=== PATIENT | female | born 1955 | race Caucasian/White ===

== ENCOUNTER 2020-09-18 06:44 | Outpatient (NON) | payer MEDICARE, OTHER, SELFPAY ==
[2020-09-19 02:43] LABS: SARS-CoV-2 RNA PCR Negative
== END 2020-09-18 06:45 ==
LOC: ANHCOVIDDT 06:45
PROVIDERS: PCP Internal Medicine; Visit Provider Internal Medicine
DX: Z20.828 Contact with and (suspected) exposure to other viral communicable diseases (principal)
CPT/HCPCS: 87635; C9803; U0003

== ENCOUNTER 2020-10-28 10:27 | Outpatient (CLI) | payer MEDICARE, SELFPAY ==
--- NOTE | ~2020-10-28 | US_ITS ---
EXAMINATION: US carotid duplex BI DATE: 10/28/2020 11:23 INDICATION: Carotid stenosis TECHNIQUE: Grayscale, color Doppler, and pulsed Doppler images of the cervical carotid arteries were obtained. The degree of vessel stenosis is placed in one of the following categories: normal, <50%, 5 0-69%, >=70% but less than near-occlusion, near-occlusion, or total occlusion. Note that percent sten osis relative to normal distal artery lumen diameter is indirectly measured from velocity measurement s as described by Stanley, et al. Radiology 2003; 229:340-346. Notes: Normal: Peak systolic velocity <125 centimeters/sec and no plaque <50%. Peak systolic velocity <125 ( EDV <40; ICA/CCA PSV ratio <2.0; used these factors only a tandem lesions or low cardiac output or co ntralateral disease) 50-69 %: PSV 125-230 (EDV 40-100; ratio 2-4) >= 70% but less than near occlusion: PSV greater than 230 (EDV > 100; ratio> 4.0) Near Occlusion: PSV that is variable; markedly narrowed lumen Occlusion: Absent flow on color/spectral Doppler and no lumen on fernandez scale. COMPARISON: Ultrasound dated 08/07/2019 FINDINGS: RIGHT: The right common carotid artery (CCA) peak systolic velocity (PSV) is 77 cm/s. The right internal car otid artery (ICA) PSV is 79 cm/s. The right ICA end-diastolic velocity (EDV) is 24 cm/s. The right IC A/CCA PSV ratio is 1.0. The external carotid artery (ECA) PSV is 63 cm/s. There is antegrade flow in the right vertebral artery. LEFT: The left CCA PSV is 88 cm/s. The left ICA PSV is 92 cm/s. The left ICA EDV is 11 cm/s. The left ICA/C CA PSV ratio is 1.0. The ECA PSV is 90 cm/s. There is antegrade flow in the left vertebral artery. IMPRESSION: 1. Less than 50% stenosis in the right internal carotid artery by sonographic criteria. 2. Less than 50% stenosis in the left internal carotid artery by sonographic criteria. Reviewed, dictated and finalized at location A. MAN OR SUPERVISOR AND OPERATOR IMPRESSION: 1. Less than 50% stenosis in the right internal carotid artery by sonographic c kasia. 2. Less than 50% stenosis in the left internal carotid artery by sonographic aleta aguirre.
== END 2020-10-28 10:28 | disposition home or self-care (01) ==
LOC: ANHIMG 10:42
PROVIDERS: PCP Internal Medicine; Visit Provider Internal Medicine
DX: R09.89 Other specified symptoms and signs involving the circulatory and respiratory systems (principal); I65.23 Occlusion and stenosis of bilateral carotid arteries
CPT/HCPCS: 93880

== ENCOUNTER 2021-05-24 10:01 | Outpatient (CLI) | payer MEDICARE, SELFPAY ==
--- NOTE | ~2021-05-24 | XR_ITS ---
EXAMINATION: XR TMJ BI DATE: 05/24/2021 10:28 INDICATION: Popping at the right temporomandibular joint. TECHNIQUE: Open and closed mouth views of the left and right temporomandibular joints were obtained. COMPARISON: None. FINDINGS: No fracture. There is normal alignment at the bilateral temporomandibular joints with the mandibular heads normally located at the mandibular fossae in the closed mouth position with normal anterior tra nsitory motion with the mandibular heads positioned caudal to the articular eminences in the open-sharon th position. The temporomandibular joint spaces appear normal with no osteoarthritic changes apprecia lemuel. Severe upper cervical facet osteoarthritis. IMPRESSION: 1. Normal bilateral temporomandibular joints. Reviewed, dictated and finalized at location A.
== END 2021-05-24 10:02 | disposition home or self-care (01) ==
LOC: ANHIMG 10:05
PROVIDERS: PCP Internal Medicine; Visit Provider Internal Medicine
DX: M26.621 Arthralgia of right temporomandibular joint (principal)
CPT/HCPCS: 70330

== ENCOUNTER 2021-07-11 08:41 | Outpatient (CLI) | payer MEDICARE, SELFPAY ==
--- NOTE | ~2021-07-11 | XR_ITS ---
EXAMINATION: XR cervical spine min 6V EXAM DATE: 07/11/2021 09:14 INDICATION: M54.2 - Cervicalgia,PAIN X 2 WKS NKI, limited mobility. TECHNIQUE: Cervical spine frontal, lateral, lateral swimmers, and open-mouth odontoid projections. Additional lateral flexion and lateral extension projections obtained. Correlation was made with CT c ervical spine 2018. FINDINGS: There are no acute fractures identified. There is moderate loss of the C5-6 and C6-7 disc height. There is 2 mm retrolisthesis C5 on C6 on all the lateral projections. The odontoid process i s intact. The lateral masses of C1 line up with C2. Prevertebral soft tissue and pre-dens space are within normal limits. There is moderate to severe cervical facet arthropathy. Prevertebral soft tissu e and pre-dens space are within normal limits. Lung apices are clear. IMPRESSION: Moderate to severe cervical arthropathy, moderate lower cervical disc disease. Reviewed, dictated and finalized at location B. IMPRESSION: Moderate to severe cervical arthropathy, moderate lower cervical di sc disease.
== END 2021-07-11 08:42 | disposition home or self-care (01) ==
PROVIDERS: PCP Internal Medicine; Visit Provider Internal Medicine
DX: M50.30 Other cervical disc degeneration, unspecified cervical region (principal)
CPT/HCPCS: 72052

== ENCOUNTER 2021-12-12 06:54 | Outpatient (CLI) | payer MEDICARE, SELFPAY ==
--- NOTE | ~2021-12-12 | CT_ITS ---
EXAMINATION: CT LE RT w con DATE: 12/12/2021 07:45 INDICATION: Right calf mass. TECHNIQUE: Computed tomography (CT) of the right lower leg was performed with 100 mL Omnipaque 350 in travenous contrast. Automated exposure control and iterative reconstruction technique were employed. The dose-length product was 148.01 mGy-cm. COMPARISON: None FINDINGS: Bone alignment is normal. No fracture. There is a benign bone island in distal tibia. There is mild right knee osteoarthritis. There is no significant stenosis of the calf arteries with three- vessel runoff. IMPRESSION: 1. No abnormal calf mass. Reviewed, dictated and finalized at location A. ALT DISTRIBUTOR TENDER IMPRESSION: 1. No abnormal calf mass.
== END 2021-12-12 06:55 | disposition home or self-care (01) ==
LOC: ANHIMG 06:59
PROVIDERS: PCP Internal Medicine; Visit Provider Internal Medicine
DX: R22.9 Localized swelling, mass and lump, unspecified (principal)
CPT/HCPCS: 73701; Q9967

== ENCOUNTER 2022-12-21 07:40 | Outpatient (CLI) | payer MEDICARE, SELFPAY ==
--- NOTE | ~2022-12-21 | MR_ITS ---
MRI of the right hip Clinical history: Pain, status post fall Technique: Coronal T1-weighted, T2-weighted, and proton-density fat-sat images, and axial T1-weighted and proton-density fat-sat images were acquired through the pelvis. Coronal T2-weighted images and c oronal, axial, and sagittal proton-density fat-sat images were acquired through the left hip. Findings: There is no fracture, avascular necrosis, or transient suppresses of either hip. Bone marro w signals in the proximal femora and visualized pelvic bones are unremarkable. Bilateral hip and SI j oint spaces are preserved. No significant degenerative change seen. No joint effusion. No right acetabular labral tear identified. Visualized musculature about the pelvis and right hip is unremarkable. No muscle atrophy or edema jaquelin ntified. Visualized tendons are intact. No evidence for bursitis. No soft tissue mass or fluid collec tion seen. IMPRESSION: Unremarkable exam. Reviewed, dictated and finalized at location . CARE LIAISON IMPRESSION: Unremarkable exam.
--- NOTE | ~2022-12-21 | MR_ITS ---
MRI of the lumbar spine Clinical History: Pain, status post fall Technique: Axial T2-weighted images, and sagittal T1-weighted, T2-weighted, and T2 fat-sat images wer e acquired. Findings: There is no fracture or subluxation of the lumbar spine. Vertebral bodies maintain normal h eight and alignment. No bone marrow signal abnormality identified. At L1-L2, there is no disc bulge or herniation. No spinal canal stenosis or neural foraminal narrowin g. At L2-L3, there is no disc bulge or herniation. No spinal canal stenosis or neural foraminal narrowin g. L3-L4, there is no disc bulge or herniation. There is minimal facet joint hypertrophy. No spinal atilio l stenosis or neural foraminal narrowing. At L4-L5, there is right foraminal disc protrusion with minimal facet joint hypertrophy. There is no spinal canal stenosis. There is mild right neural foraminal narrowing, with probable focal impingemen t of the exiting nerve root. At L5-S1, there is no disc bulge or herniation. There is minimal facet joint arthropathy. No spinal c anal stenosis or neural foraminal narrowing. Paravertebral soft tissues are unremarkable. Impression: No fracture or subluxation. Right foraminal disc protrusion at L4-L5, which probably impinges the exiting right-sided nerve root at this level. Reviewed, dictated and finalized at [facility]. RDOUS MATERIALS TANKER DRIVER Impression: No fracture or subluxation. Right foraminal disc protrusion at L4-L5, which probably impinges the exiting r ight-sided nerve root at this level.
== END 2022-12-21 07:41 | disposition home or self-care (01) ==
PROVIDERS: PCP Internal Medicine; Visit Provider Internal Medicine
DX: M25.551 Pain in right hip (principal); M54.10 Radiculopathy, site unspecified; W19.XXXA Unspecified fall, initial encounter; M79.604 Pain in right leg; M51.26 Other intervertebral disc displacement, lumbar region
CPT/HCPCS: 72148; 73721

== ENCOUNTER → 2023-01-30 09:26 | Outpatient (CLI) | payer MEDICARE, SELFPAY ==
--- NOTE | ~2023-01-30 | US_ITS ---
Procedure: Duplex Doppler examination of the bilateral carotids. Indication: Carotid bruit Technique: Real time, color-flow and pulse wave Doppler examination of the bilateral carotids was performed. Findings: Costa scale ultrasonography of the right neck demonstrated no significant plaque. There was demonstrat ion of normal color-flow and Doppler waveforms within the right common, internal and external carotid arteries. The peak systolic velocities in the right common, internal and external carotid arteries w ere demonstrated to be 67 cm/sec, 87 cm/sec and 96 cm/sec respectively. The right ICA/CCA ratio was 1 .5.The proximal right internal carotid artery demonstrates 0% stenosis relative to the normal distal artery lumen diameter. Costa scale sonography of the left neck demonstrated no significant plaque. There was demonstration of normal color-flow and wave forms within the left common, internal and external carotid arteries. The peak systolic velocities in the left common, internal and external carotid arteries were demonstrate d to be 87cm/sec, 95 cm/sec and 110 cm/sec respectively. The left ICA/CCA ratio was 1.8. The proximal left internal carotid artery demonstrates 0% stenosis relative to the normal distal artery lumen donte meter. There was antegrade flow demonstrated in the bilateral vertebral arteries. Impression: No hemodynamically significant stenosis of the bilateral internal carotid arteries. Antegrade flow in the bilateral vertebral arteries. Note: The methodology used is an indirect measurement validated against a direct method (such as the NASCET criteria) that compares diameters at the stenosis to the distal ICA. Reviewed, dictated and finalized at [facility]. Impression: No hemodynamically significant stenosis of the bilateral internal carotid arter ies. Antegrade flow in the bilateral vertebral arteries. Note: The methodology used is an indirect measurement validated against a direct meth od (such as the NASCET criteria) that compares diameters at the stenosis to the distal ICA.
== END ==
PROVIDERS: PCP Internal Medicine; Visit Provider Internal Medicine
DX: R09.89 Other specified symptoms and signs involving the circulatory and respiratory systems (principal)
CPT/HCPCS: 93880

== ENCOUNTER 2023-03-21 10:15 | Outpatient (RCR) | payer MEDICARE, SELFPAY ==
--- NOTE | 2023-02-13 08:14 | PCPTNOTE ---
Patient showed up for evaluation, but is being seen at another clinic. Patient wants to come for aquatic therapy and will be discharged tomorrow from her other facility. Rescheduled evaluation for 730 AM
--- NOTE | 2023-02-15 17:24 | PTOPEVAL1 ---
Assessment and note entered by León Larson, PT Evaluation Information Assessment Status Evaluation Diagnosis chronic low back pain, spinal stenosis, radiculopathy Subjective Information Patient reports dealing with back pain since November 12, 2022 including radiating symptoms. Worst with bending over. Has gone to physical therapy at another facility and received injections recently which she reports has help quite a bit. Assessment PT Clinical Summary Jnaice is a 67 year old female coming to the clinic for low back pain with radiating symptoms going down both legs. Pain worse with flexion, has tightness in her hamstrings, piriformis, and calfs . Small leg length discrepancy with the LLE being longer. Will work on core strengthening along with neural flossing, and posture control. Plan of Care Interventions Aquatic Therapy,Electrical Stimulation,Gait Training,Hot Pack/Cold Pack,Manual Therapy, Mechanical Traction,Neuro Re-education,Patient/ Caregiver Education,Therapeutic Activities, Therapeutic Exercise,Ultrasound Other Interventions taping, cupping, IASTM PT Services Indicated Yes Treatment Frequency and 1-2x/wk for 4 weeks Duration These treatments will address the objective and functional deficits as defined above. The patient will be advanced safely and appropriately in order for the patient to progress towards his/her prior level of function. Additional exercises will be introduced and as well as a comprehensive home exercise program upon discharge, if needed, ?to ensure carryover of functional gains achieved in the clinic. This treatment plan has been reviewed and agreement upon by the patient.
--- NOTE | 2023-03-21 10:33 | PTOPDC ---
Assessment and note entered by León Larson, PT Evaluation Information Assessment Status Discharge Diagnosis Chronic low back pain with radiating symptoms Subjective Information Patient reports she has consistently done her stretches at home, with no improvement and was looking forward to aquatic therapy, but when she did it the next day was very sore. Patient feels that surgery is the only path forward and has an appointment with the neurosurgeon on April 12. Reported Pain Level Pain Score 10: Self Report Assessment PT Clinical Summary Jillian is a 67 year old female coming into the clinic with a diagnosis with chronic low back pain with radiating pain going into both legs, worse on the RLE. She was evaluated on 02/15/23 and attended 5 sessions with cancelations secondary to JUHI cataract surgeries. Patient reports no change in symptoms and does not meet any goals besides independent with HEP. Discharged from physical therapy at this time and waiting on consultation with back surgeon. Plan of Care PT Services Indicated No
== END 2023-03-21 11:17 | disposition home or self-care (01) ==
LOC: ANHPT 10:15
PROVIDERS: PCP Internal Medicine; Visit Provider Internal Medicine
DX: M54.50 Low back pain, unspecified (principal); M48.00 Spinal stenosis, site unspecified; M54.16 Radiculopathy, lumbar region; G89.29 Other chronic pain
CPT/HCPCS: 97110; 97113; 97140; 97161

== ENCOUNTER 2023-07-28 08:40 | Outpatient (CLI) | payer MEDICARE, SELFPAY ==
[2023-07-28 09:25] LABS: Alanine Aminotransferase 26 U/L (6-35); Albumin Level 4.6 g/dL (3.5-5.1); Alkaline Phosphatase 77 U/L (38-126); Anion Gap 6 mmol/L (8-16); Aspartate Amino Transferase 28 U/L (14-36); Bilirubin,Total 0.3 mg/dL (0.2-1.3); Blood Urea Nitrogen 15 mg/dL (7-17); Calcium 9.6 mg/dL (8.4-10.2); Carbon Dioxide 30 mmol/L (22-30); Chloride 105 mmol/L (98-107); Cholesterol 208 mg/dL (0-200); Estimated Glomerular Filt Rate > 60; Glucose 98 mg/dL (65-110); HDL Direct 55 mg/dL; Potassium 4.5 mmol/L (3.4-5.0); Sodium 141 mmol/L (137-145); Triglycerides 135 mg/dL (<150)
[2023-07-28 09:27] LABS: Hemoglobin A1C 5.4 % (<5.7)
[2023-07-28 09:36] LABS: LDL Cholesterol Direct 113 mg/dL
[2023-07-28 12:11] LABS: Free T4 Free Thyroxine 1.16 ng/mL (0.78-2.19)
== END 2023-07-28 08:41 | disposition home or self-care (01) ==
PROVIDERS: PCP Internal Medicine; Visit Provider Internal Medicine
DX: E55.9 Vitamin D deficiency, unspecified (principal); R73.03 Prediabetes; E78.2 Mixed hyperlipidemia; Z13.29 Encounter for screening for other suspected endocrine disorder; Z79.899 Other long term (current) drug therapy
CPT/HCPCS: 36415; 80053; 80061; 82306; 83036; 84439; 84443

== ENCOUNTER → 2023-11-21 10:07 | Outpatient (CLI) | payer MEDICARE, SELFPAY ==
--- NOTE | ~2023-11-21 | DEXA_ITS ---
Bone Density Report Name: MINNIE CARPENTER Age: 68 Sex: Female Ethnicity: White Date of : 1955 Indication: postmenopausal; screening for osteoporosis; hysterectomy; Referring Provider: EKATERINA MORALES Study: Bone densitometry was performed. Exam Date: November 21, 2023 Accession number: [id number] Bone Density: Region BMD T-score Z-score Classification AP Spine (L1-L4) 0.938 -1.0 1.1 Normal Femoral Neck (Left) 0.493 -3.2 -1.4 Osteoporosis Total Hip (Left) 0.673 -2.2 -0.7 Osteopenia Femoral Neck (Right) 0.468 -3.4 -1.7 Osteoporosis Total Hip (Right) 0.632 -2.5 -1.1 Osteoporosis Total Hip Mean 0.653 -2.4 -0.9 Osteopenia World Health Organization criteria for BMD impression classify patients as: Normal (T-score at or above -1.0), Osteopenia (T-score between -1.0 and -2.5), or Osteoporosis (T-score at or below -2.5). 10-year Fracture Risk: FRAX not reported because: Some T-score for Spine Total or Hip Total or Femoral Neck at or below -2.5 Clinical Information Provided by Patient: Has used the following medications: Vitamin D Has the following medical conditions: Hysterectomy Patient maximum height was 63 Menopause Age: 44 No regular weight bearing exercise Drinks caffeinated beverages Onset of menses at age 12 Number of children 3 Impression: The patient has osteoporosis, based on the Right Femoral Neck T-score. Discussion: INCREASED RISK OF FRACTURE. BONE DENSITY IS UNDESIRABLY LOW AT ONE OR MORE SKELETAL SITES, CONSISTENT WITH POSTMENOPAUSAL OSTEOPOROSIS. This patient's lowest T-score meets the World Health Organization's (WHO) criteria for osteoporosis at one or more sites (T-score -2.5 or below). In untreated patients, the risk of osteoporotic fracture increases approximately two-fold for each 1.0 SD decrease in T-score. Low bone density is not the only risk factor for fracture; also consider factors such as patient's age, frailty or poor health, risk of falling, risk of injury, previous osteoporotic fracture, family history of osteoporosis, cigarette smoking, low body weight, etc. Not everyone with low bone mineral density has osteoporosis; osteomalacia and other metabolic bone disorders should also be considered. Patients who have osteoporosis should be evaluated for specific diseases and conditions (secondary causes) that may cause or contribute to bone loss. The [place] Association of Clinical Endocrinologists (AACE) and National Osteoporosis Foundation (NOF) recommend pharmacologic intervention for all postmenopausal women whose T-score is in this range. The patient should follow a healthful lifestyle (good nutrition with adequate calcium and vitamin D, and appropriate weight-bearing exercise). Follow-Up: Consider a repeat BMD and Vertebral Fracture Assessment (VFA) exam in 2 years or sooner if
== END ==
PROVIDERS: PCP Internal Medicine; Visit Provider Internal Medicine
DX: Z78.0 Asymptomatic menopausal state (principal); M81.0 Age-related osteoporosis without current pathological fracture; M85.852 Other specified disorders of bone density and structure, left thigh; M85.851 Other specified disorders of bone density and structure, right thigh
CPT/HCPCS: 77080

== ENCOUNTER → 2023-12-25 11:09 | Outpatient (CLI) | payer MEDICARE, SELFPAY ==
--- NOTE | ~2023-12-25 | MM_ITS ---
EXAMINATION: MM screening anthony BI w marek HISTORY: Screening mammogram TECHNIQUE: Craniocaudal and mediolateral oblique 3-D tomosynthesis images were obtained and synthetic 2-D images were generated. CAD analysis was submitted and interpreted. COMPARISON: No prior mammogram is available for comparison at this institution. BREAST PARENCHYMAL COMPOSITION: There are scattered areas of fibroglandular density. FINDINGS: RIGHT BREAST: No suspicious mass, calcification, or architectural distortion are identified to sugges t malignancy. LEFT BREAST: There is focal asymmetry in the middle third of the central left breast. IMPRESSION: 1. Focal asymmetry of the left breast which may represent the patient's baseline however no compariso n is currently available. 2. Comparison with prior mammograms is necessary. BI-RADS Category 0: Incomplete: Needs comparison with prior mammograms. Reviewed, dictated and finalized at location A. EMAN IMPRESSION: 1. Focal asymmetry of the left breast which may represent the patient's baselin e however no comparison is currently available. 2. Comparison with prior mammograms is necessary. BI-RADS Category 0: Incomplete: Needs comparison with prior mammograms.
== END ==
PROVIDERS: PCP Internal Medicine; Visit Provider Internal Medicine
DX: Z12.31 Encounter for screening mammogram for malignant neoplasm of breast (principal); R92.8 Other abnormal and inconclusive findings on diagnostic imaging of breast
CPT/HCPCS: 77063; 77067

== ENCOUNTER 2024-08-19 12:03 | Outpatient (CLI) | payer MEDICARE, SELFPAY ==
--- NOTE | ~2024-08-19 | CT_ITS ---
CLINICAL INDICATION: Abdominal pain. COMPARISON: 08/31/2015. TECHNIQUE: An enhanced CT of the abdomen and pelvis was performed utilizing multislice spiral [employer] ue reconstructed at 2.5 mm slice thickness. Coronal and sagittal reconstructions were performed. Th is CT examination was performed utilizing dose reduction techniques. This CT examination was performe d using one or more of the following dose reduction techniques: Automated exposure control, adjustmen t of the mA and/or kV according to patient's size, and the use of iterative reconstruction technique. FINDINGS/OBSERVATIONS: Visualized lower thorax:The bilateral lung bases are clear. The heart is of normal size, without pericardial effusion. Liver: The liver is enlarged measuring 19 cm in longitudinal dimension and extending into the right h emipelvis. The liver enhances homogeneously. Gallbladder and biliary system: The gallbladder is only minimally distended, and otherwise unremarkab le. Pancreas: The pancreas enhances homogeneously with a small focus of increased attenuation in the tail , unchanged from 2015 and therefore likely not significant. Spleen: The spleen is borderline enlarged measuring 9 cm in longitudinal dimension Kidneys: The bilateral kidneys enhance homogeneously, without hydronephrosis or obstructing renal zuhair culi. Scarring is present within the interpolar region of the left kidney. Adrenal glands: The bilateral adrenal glands are unremarkable. Gastrointestinal tract: Fecal stasis within the colon, which is distended. The cecum extends deep int o the right hemipelvis, originating at the level of the pubic symphysis. Appendix:The retrocecal appendix is opacified with air and of normal size. Vasculature: Densely calcified atherosclerotic disease within the abdominal aorta. No aneurysmal dila tation. Lymph nodes: No morphologically suspicious or pathologically enlarged lymph nodes within the retroper itoneum or within the root of the mesentery. Pelvic structures:The uterus is retroverted and retroflexed, and atrophic. The bladder is decompressed, limiting its evaluation. Body wall and musculoskeletal: No significant degenerative disease within the lumbosacral spine. No u mbilical hernia is appreciated. IMPRESSION: Fecal stasis within the colon. Borderline hepatosplenomegaly. Reviewed, dictated and finalized at location A.
[2024-08-19 12:22] LABS: Estimated Glomerular Filt Rate > 60
== END 2024-08-19 12:04 | disposition home or self-care (01) ==
LOC: MICIMG 12:05
PROVIDERS: PCP Internal Medicine; Visit Provider Internal Medicine
DX: R10.9 Unspecified abdominal pain (principal); Z87.19 Personal history of other diseases of the digestive system
CPT/HCPCS: 74177; Q9967

== ENCOUNTER 2024-10-02 15:45 | Outpatient (CLI) | payer MEDICARE, SELFPAY ==
[2024-10-02 16:24] LABS: Complement C3 108 mg/dL (88-165)
[2024-10-02 16:45] LABS: Free T4 Free Thyroxine 0.97 ng/mL (0.78-2.19)
[2024-10-06 13:08] LABS: Complement Total CH50 58 U/mL (31-60)
[2024-10-06 18:09] LABS: Thyroglobulin 34.6 ng/mL; Thyroglobulin Antibodies <1 IU/mL (< or = 1); Thyroid Peroxidase Antibodies <1 IU/mL (<9)
== END 2024-10-02 15:46 | disposition home or self-care (01) ==
LOC: ANHLAB 15:46
PROVIDERS: PCP Internal Medicine; Visit Provider Internal Medicine
DX: E78.2 Mixed hyperlipidemia (principal); L50.9 Urticaria, unspecified; Z13.29 Encounter for screening for other suspected endocrine disorder
CPT/HCPCS: 36415; 84432; 84439; 84443; 86038; 86039; 86160; 86162; 86376; 86800

== ENCOUNTER 2024-10-07 10:15 | Outpatient (CLI) | payer MEDICARE, SELFPAY ==
--- NOTE | ~2024-10-07 | US_ITS ---
EXAMINATION: US thyroid DATE: 10/07/2024 11:18 INDICATION: Abnormal findings on diagnostic imaging. TECHNIQUE: Multiple ultrasound images of the thyroid were obtained. COMPARISON: None. FINDINGS: The right thyroid lobe measures 4.4 x 1.2 x 1.8 cm. The left thyroid lobe measures 4.0 x 1.1 x 4.4 c m. In the right thyroid lobe, there is a 13 mm solid, isoechoic, wider than tall nodule with ill-def ined margin without echogenic foci (TI-RADS TR3). In the right thyroid lobe, there is an 8 mm solid, isoechoic, wider than tall nodule with ill-defined margin without echogenic foci (TR3). In the right thyroid lobe, there is a 3 mm nodule. IMPRESSION: 1. Small thyroid nodules, likely not clinically significant. No follow-up is needed. Reviewed, dictated and finalized at location A. TICS SPECIALIST IMPRESSION: 1. Small thyroid nodules, likely not clinically significant. No follow-up is ne eded.
== END 2024-10-07 10:16 | disposition home or self-care (01) ==
LOC: ANHIMG 10:18
PROVIDERS: PCP Internal Medicine; Visit Provider Internal Medicine
DX: E04.2 Nontoxic multinodular goiter (principal); R93.89 Abnormal findings on diagnostic imaging of other specified body structures
CPT/HCPCS: 76536

== ENCOUNTER 2024-11-28 10:35 | Outpatient (CLI) | payer MEDICARE, SELFPAY ==
--- NOTE | ~2024-11-28 | XR_ITS ---
EXAMINATION: XR elbow LT min 3V DATE: 11/28/2024 11:10 INDICATION: Left elbow injury post fall TECHNIQUE: Anteroposterior, two oblique and lateral views of the left elbow were obtained. COMPARISON: None. FINDINGS: Strong suggestion of a subtle nondisplaced intra-articular fracture involving the radial head with ne dayo indiscernible lucency and step-off at the articular surface. Alignment remains essentially anato pato. No other lesions suspicious for fracture identified. Joint spaces are relatively preserved with moderate-sized elbow joint effusion displacing the anterior fat pad. Soft tissues are otherwise unrem arkable. IMPRESSION: 1. Likely nondisplaced intra-articular fracture of the left radial head with associated elbow joint e ffusion. Reviewed, dictated and finalized at location B. LOPMENT WRITER IMPRESSION: 1. Likely nondisplaced intra-articular fracture of the left radial head with as sociated elbow joint effusion.
--- NOTE | ~2024-11-28 | XR_ITS ---
CORRECTED REPORT Corrected impression to LEFT hand [facility] [place] This report was recreated on 12/03/24. Original report was UR MARKET ECONOMIST EXAMINATION: XR hand LT min 3V, XR wrist LT min 3V DATE: 11/28/2024 11:10 INDICATION: Left hand and wrist injury post fall TECHNIQUE: 1. Posteroanterior, ulnar deviation, oblique, and lateral views of the left wrist were obtained. 2. Dorsal palmar, oblique and lateral views of the left hand were obtained. COMPARISON: None. FINDINGS: Alignment of the left hand and wrist is normal. No fracture identified. Typical pattern of mild osteoarthritis at the triscaphe and first carpometacarpal joints and minimal osteoarthritis at a few of the interphalangeal joints. No focal soft tissue swelling. IMPRESSION: 1. Minimal to mild polyarticular osteoarthritis at the LEFT hand greatest at the radial aspect of the carpus. No acute osseous abnormality. Reviewed, dictated and finalized at location B. UR MARKET ECONOMIST MTDD IMPRESSION: 1. Minimal to mild polyarticular osteoarthritis at the right hand greatest at t he radial aspect of the carpus. No acute osseous abnormality.
--- NOTE | ~2024-11-28 | XR_ITS ---
EXAMINATION: XR shoulder LT min 2V DATE: 11/28/2024 11:10 INDICATION: Lateral left shoulder pain post fall TECHNIQUE: AP internally and externally rotated, AP oblique externally rotated and transscapular Y vi ews of the left shoulder were obtained. COMPARISON: None FINDINGS: Normal alignment. No fracture. Glenohumeral joint space is normal. Mild acromioclavicular osteoarthr itis. Moderate to severe cervical and thoracic spondylosis. Soft tissues are unremarkable. Visualized portion of the lungs are clear. IMPRESSION: Mild left acromioclavicular osteoarthritis. No acute osseous abnormality. Reviewed, dictated and finalized at location B. IL SALESPERSON
== END 2024-11-28 10:36 | disposition home or self-care (01) ==
PROVIDERS: PCP Internal Medicine; Visit Provider Internal Medicine
DX: M79.602 Pain in left arm (principal); M25.532 Pain in left wrist; M25.512 Pain in left shoulder; W19.XXXA Unspecified fall, initial encounter; M19.012 Primary osteoarthritis, left shoulder; S52.182A Other fracture of upper end of left radius, initial encounter for closed fracture; X58.XXXA Exposure to other specified factors, initial encounter; M19.041 Primary osteoarthritis, right hand
CPT/HCPCS: 73030; 73080; 73110; 73130

== ENCOUNTER 2024-12-24 09:47 | Outpatient (CLI) | payer MEDICARE, SELFPAY ==
--- NOTE | ~2024-12-24 | XR_ITS ---
EXAMINATION: XR elbow LT min 3V DATE: 12/24/2024 10:29 INDICATION: Displaced fracture of head of left radius. TECHNIQUE: 4 views of left elbow were obtained. COMPARISON: Left elbow radiographs 11/28/2024 FINDINGS: There is a nondisplaced intra-articular fracture of radial head. Joint spaces are normal. N o elbow joint effusion. IMPRESSION: 1. Unchanged nondisplaced radial head fracture. Reviewed, dictated and finalized at location A. SUPERINTENDENT
== END 2024-12-24 09:48 | disposition home or self-care (01) ==
PROVIDERS: PCP Internal Medicine; Visit Provider Orthopaedic Surgery
DX: S52.122D Displaced fracture of head of left radius, subsequent encounter for closed fracture with routine healing (principal); X58.XXXD Exposure to other specified factors, subsequent encounter
CPT/HCPCS: 73080

== ENCOUNTER 2025-03-02 14:59 | Outpatient (CLI) | payer MEDICARE, SELFPAY ==
--- NOTE | ~2025-03-02 | US_ITS ---
EXAMINATION: US carotid duplex BI DATE: 03/02/2025 16:22 INDICATION: Signs and symptoms of circulatory abnormality TECHNIQUE: Grayscale, color Doppler, and pulsed Doppler images of the cervical carotid arteries were obtained. The degree of vessel stenosis is placed in one of the following categories: normal, <50%, 5 0-69%, >=70% but less than near-occlusion, near-occlusion, or total occlusion. Note that percent sten osis relative to normal distal artery lumen diameter is indirectly measured from velocity measurement s as described by Stanley, et al. Radiology 2003; 229:340-346. Notes: Normal: Peak systolic velocity <125 centimeters/sec and no plaque <50%. Peak systolic velocity <125 ( EDV <40; ICA/CCA PSV ratio <2.0; used these factors only a tandem lesions or low cardiac output or co ntralateral disease) 50-69 %: PSV 125-230 (EDV 40-100; ratio 2-4) >= 70% but less than near occlusion: PSV greater than 230 (EDV > 100; ratio> 4.0) Near Occlusion: PSV that is variable; markedly narrowed lumen Occlusion: Absent flow on color/spectral Doppler and no lumen on fernandez scale. COMPARISON: Ultrasound dated 01/30/2023 FINDINGS: RIGHT: The right common carotid artery (CCA) peak systolic velocity (PSV) is 88 cm/s. The right internal car otid artery (ICA) PSV is 108 cm/s. The right ICA end-diastolic velocity (EDV) is 20 cm/s. The right I CA/CCA PSV ratio is 1.2. The external carotid artery (ECA) PSV is 134 cm/s. There is antegrade flow i n the right vertebral artery. LEFT: The left CCA PSV is 113 cm/s. The left ICA PSV is 1:30 cm/s. The left ICA EDV is 26 cm/s. The left IC A/CCA PSV ratio is 1.2. The ECA PSV is 135 cm/s. There is antegrade flow in the left vertebral arter y. IMPRESSION: 1. Less than 50% stenosis in the right internal carotid artery by sonographic criteria. 2. 50-69% stenosis in the left internal carotid artery by sonographic criteria. Reviewed, dictated and finalized at location A. IMPRESSION: 1. Less than 50% stenosis in the right internal carotid artery by sonographic c riteria. 2. 50-69% stenosis in the left internal carotid artery by sonographic criteria.
--- OUTSIDE RECORDS SUMMARY | 2025-03-02 17:01 | XMS_ITS | Referral Summary ---
Author Organization [facility] Address [address] [place] [address] Care Team Providers Care Health Coach Name Role Phone Joaquin Santos MD Primary Care Provider Allergies Active Allergy Reactions Criticality Noted Date Comments Levofloxacin Other (See comments) Medium weakness Medications ascorbic acid (ascorbic acid with jonnathan hips) 500 mg tablet,chewable Take 1 tablet/chew tab (500 mg total) by mouth daily Active atorvastatin (LIPITOR) 20 mg tablet Take 1 tablet (20 mg total) by mouth daily Active cholecalciferol (Vitamin D3) 1,000 unit capsule Take 1 capsule (1,000 Units total) by mouth daily Active cyanocobalamin (vitamin B-12) 1,000 mcg tabletIndicatio ns:Prevention of Vitamin B12 Deficiency Take 1 tablet (1,000 mcg total) by mouth daily Active omega-3 fatty acids 1,000 mg capsule Take 1 tablet by mouth daily Active omeprazole (PriLOSEC) 20 mg capsule Take 1 capsule (20 mg total) by mouth daily as needed Active nystatin cream Apply 1 Application topically 2 (two) times a day Active oxyCODONE (ROXICODONE) 5 mg immediate release tabletIndicatio ns:Pain Take 1 tablet (5 mg total) by mouth every 6 (six) hours as needed for pain 28 tablet 3 Active cyclobenzaprine (FLEXERIL) 10 mg tablet Take 1 tablet (10 mg total) by mouth 3 (three) times a day as needed for muscle spasms 30 tablet 3 Active senna-docusate (PERICOLACE) 8.6-50 mg Take 1 tablet by mouth daily 14 tablet Active Active Problems Problem Noted Date Diagnosed Date Lumbar radiculopathy 04/24/2023 Neuritis or radiculitis due to rupture of lumbar intervertebral disc 04/24/2023 Diarrhea 02/25/2016 Constipation 09/24/2015 Microscopic colitis 09/24/2015 Heartburn 09/24/2015 Weight loss 09/24/2015 Social History Tobacco Use Types Packs/Day Years Used Date Smoking Tobacco: Never AUDIT-C Answer Date Recorded Q1: How often do you have a drink containing alc ohol? 2-3 times a week 05/17/2023 Q2: How many drinks containi ng alcohol do you have on a typical day when you are drinking? 1 or 2 05/17/2023 Q3: How often do you have si x or more drinks on one occasion? Never 05/17/2023 Personal Safety Answer Date Recorded Have you ever been in or are you currently in a harmful physical or emotional relationship or is someone making you feel afraid or unsafe? 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 Gender Identity Not on file Sexual Orientation Not on file Last Filed Vital Signs Vital Sign Reading Time Taken Comments Blood Pressure 155/59 06/04/2023 3:35 PM CDT Pulse 68 06/04/2023 3:35 PM CDT Temperature 36.2 C (97.1 F) 06/04/2023 2:55 PM CDT Respiratory Rate 12 06/04/2023 3:35 PM CDT Oxygen Saturation 99% 06/04/2023 3:35 PM CDT Inhaled Oxygen Concentration - - Weight 58.2 kg (128 lb 4.9 oz) 06/04/2023 11:20 AM CDT Height 160 cm (5' 3 ) 06/04/2023 11:20 AM CDT Body Mass Index 22.73 06/04/2023 11:20 AM CDT Plan of Treatment Not on file Procedures Procedure Name Priority Date/Time Associated Diagnosis Comments SCREENING MAMMOGRAM BILATERAL W EZIO Schedule Routine, Read Routine (OP Routine) 03/30/2021 10:24 AM CDT Encounter for screening mammogram for malignant neoplasm of breast COLONOSCOPY REPORT 09/06/2015 from Last 3 Months or Most Recently Relevant to Health Maintenance Results * Screening Mammogram Bilateral W Ezio (03/30/2021 10:24 AM CDT) Anatomical Region Laterality Modality Breast Bilateral Mammography Narrative 03/30/2021 12:58 PM CDT Mammogram Technique: Bilateral Digital Breast Tomosynthesis, Bilateral C-view 2D Screening mammogram. Views obtained: bilateral craniocaudal and bilateral mediolateral oblique. Computer Aided Detection was performed. Mammogram Findings: The present examination has been compared to prior imaging studies performed at [facility] on 01/14/2020, at [facility] on 09/09/2013, and at [facility] on 04/30/2009. The breasts are heterogeneously dense, which may obscure small masses. There is no suspicious abnormality in either breast. Patient has personal history of reduction mammoplasty. Impression: Finding is benign. Annual screening mammography is recommended. OVERALL FINAL ASSESSMENT: BI-RADS CATEGORY 2: Benign. Procedure Note Odilia Santamaria MD - 03/30/2021 Mammogram Technique: Bilateral Digital Breast Tomosynthesis, Bilateral C-view 2D Screening mammogram. Views obtained: bilateral craniocaudal and bilateral mediolateral oblique. Computer Aided Detection was performed. Mammogram Findings: The present examination has been compared to prior imaging studies performed at [facility] on 01/14/2020,at [facility] on 09/09/2013, and at [facility] on 04/30/2009. The breasts are heterogeneously dense, which may obscure small masses. There is no suspicious abnormality in either breast. Patient has personal history of reduction mammoplasty. Impression: Finding is benign. Annual screening mammography is recommended. OVERALL FINAL ASSESSMENT: BI-RADS CATEGORY 2: Benign. us Self Screening Mammogram IMG MAMMO PROCEDURES Fi nal Result * COLONOSCOPY REPORT (09/06/2015) Anatomical Region Laterality Modality Other Narrative 09/06/2015 Ordered by an unspecified provider. us Historical Provider MD MCHUGH PROCEDURE ORDERABLES F inal Result from Last 3 Months or Most Recently Relevant to Health Maintenance Insurance MEDICARE COMMERCIAL GENERIC MEDICARE [employer] Care Teams Health Coach Relationship Specialty Start Date End Date Joaquin Santos MD [address] [facility] [address] [place], [place] [id number] PCP - General Internal Medicine 06/04/23
--- OUTSIDE RECORDS SUMMARY | 2025-03-02 17:01 | XMS_ITS | Continuity of Care Document ---
Author Organization [facility] Address [address] [place] [address] Phone Care Team Providers Care Piping Supervisor Name Role Phone Juanis Canela MD Unavailable Unavailable Allergies, Adverse Reactions, Alerts Substance Reaction Status Criticality levofloxacin Active No Information Procedures Procedure Date SCREENING COLONOSCOPY (NOT HIGH RISK) No Advance Directives Directive Yes / No Effective Date File Name No Information Encounters Encounter Description Practice Location Reason(s) For Visit Diagnoses Date Provider Providers Copied on Encounter [facility], [address], [place], [place], [id number], tel:[phone] [facility] No Information Rola Olivarez. [address] [place] [id number], . tel:[phone] Referring Provider: Joaquin Santos, [facility], [place], [address]. tel:[phone] [facility], [address], [place], [place], [id number], tel:[phone] [facility] No Information Rola Olivarez. [facility] [address], [id number], . tel:[phone] Family History Family Member Type Diagnosis Age At Onset No Information Payers Payer name Insurance type Covered republican ID Authoriza tion(s) MEDICARE MB [id number] [employer] MDR SUPPLEMENT CI [id number] Social History Type Description Quantity Date Captured Comments Sex Female Smoking Status No Information Chief Complaint And Reason For Visit No Information Reason For Referral Reason For Referral No Information History Of Present Illness Encounter Date Complaint History Of Prese nt Illness No Information Functional Status Date Functional Assessmen t No Information Instructions Date Instruction Additional Infor mation No Information Assessments Type Assessment Date No Information Patient Care Teams Name Effective Dates (start - stop) Status Members No Information
--- OUTSIDE RECORDS SUMMARY | 2025-03-02 17:01 | XMS_ITS ---
Author Organization [facility] Address [address] [facility] [address] [place] [address] Care Team Providers Care Orchestra Teacher Name Role Phone zzzzMigration, zzzzProvider Unavailable Unav ailable REASON FOR VISIT EMR-Cristian Encounters Encounter Location Date Provider Diagnosis [facility] [address] [address] [place] [address] 09/01/2023 zzzzProvider zzzzMigration Plan Of Treatment No Information Progress Notes * Jillian CARPENTER LDOB:[birth year] (69 yo F)Acc No.[id number]:09/01/2023 Patient: Jillian FU :1955 A ge:68 Y S ex:Female Address:[address] [place] [address] Subjective: * Chief Complaints: * E MR-Cristian * Medical History: * Surgical History: * Hospitalization/Major Diagno stic Procedure: * Medications: Objective: * Vitals: * Physical Examination: Assessment: Plan: * Treatment: * Procedure Codes: * true * Date: Generated for Printi ng/Faxing/eTransmitting on: 0 03/02/2025 05:01 PM CDT
--- OUTSIDE RECORDS SUMMARY | 2025-03-02 17:01 | XMS_ITS | Encounter Summary ---
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
--- OUTSIDE RECORDS SUMMARY | 2025-03-02 17:01 | XMS_ITS | Clinical Summary ---
Author Organization [facility] Address [address] [facility] [place] [address] Care Team Providers Care Supervising Architect Name Role Phone Anant Baker MD Primary Care Provider [phone] Source Comments [facility],non-owned Affiliates and Associated Physician Practices is amultiple site organization consisting of ambulatory clinics and hospital sitesin [place], [place], [place] and [place]. This disclosure is being madepursuant to the Care Everywhere program and may not contain all information available regarding this patient. Last updated 18.[employer] [facility] Allergies Active Allergy Reactions Criticality Noted Date Comments Levofloxacin Other 01/18/2018 Extreme aches, muscular reaction. Medications * Be aware that medications may not be up to date on this document. Alwaysverify current medications with the patient. Cyanocobalamin (B-12) 100 MCG Activ e VITAMIN E PO Active Ascorbic Acid (VITAMIN C ER PO) Active atorvastatin (LIPITOR) 10 MG tablet Take 10 mg by mouth at bedtime Active benzonatate (TESSALON) 200 MG capsule Take 1 capsule by mouth 3 times daily as needed for Cough 30 capsule 03/15/2019 Active Family History Medical History Relation Name Comments Cancer - Pancreatic Father Other - Cardiac Mother Heart attack at age 64 Relation Name Status Comments Father Mother Social History Tobacco Use Types Packs/Day Years Used Date Smoking Tobacco: Former Cigarettes 1 20 1 973 - 1992 Smokeless Tobacco: Never Tobacco Cessation:Counseling Given: No Alcohol Use Standard Drinks/Week Comments No 0 (1 standard drink = 0.6 oz pur e alcohol) Comments No Sex and Gender Information Value Date Recorded Sex Assigned at Not on file 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 Gender Identity Not on file Sexual Orientation Not on file Last Filed Vital Signs Vital Sign Reading Time Taken Comments Blood Pressure 122/58 03/15/2019 10:20 AM CDT Pulse 90 03/15/2019 10:20 AM CDT Temperature 36.8 C (98.3 F) 03/15/2019 10:20 AM CDT Respiratory Rate 16 03/15/2019 10:20 AM CDT Oxygen Saturation 98% 03/15/2019 10:20 AM CDT Inhaled Oxygen Concentration - - Weight 61.2 kg (135 lb) 03/15/2019 10:20 AM CDT Height 160 cm (5' 3 ) 03/15/2019 10:20 AM CDT Body Mass Index 23.91 03/15/2019 10:20 AM CDT Plan of Treatment Health Maintenance Due Date Last Done Comments BONE DENSITY TESTING 1955 COLOGUARD (AGES 45-75) - COL ON CA SCREENING 1954 COLON MONITORING 1954 COLONOSCOPY - COLON CA SCREENING 1954 CT COLONOGRAPHY - COLON CA SCREENING 1955 Colorectal Cancer Screening 1954 FIT - COLON CA SCREENING 1954 FLEX SIG - COLON CA SCREENING 1955 MAMMOGRAM 1955 MEDICARE AWV 12 MONTHS 1954 HEPATITIS C SCREENING 03/29/1972 DTAP/TDAP/TD VACCINES (1 - Tdap) 1973 PNEUMOCOCCAL VACCINE 50+ (1 of 1 - PCV) 2004 ZOSTER VACCINE (1 of 2) 2004 COVID-19 VACCINE ( - 2023-2 5 season) 2024 DEPRESSION SCREENING 11/12/2024 INFLUENZA VACCINE (Season Ended) 2025 Respiratory Syncytial Virus (RSV) Vaccine Pt: or over 60 yrs (1 - 1-dose 75+ series) 2029 HEPATITIS B VACCINE Aged Out No longe r eligible based on patient's age to complete this topic HIB VACCINE Aged Out No longer eligi ble based on patient's age to complete this topic HPV VACCINE Aged Out No longer eligi ble based on patient's age to complete this topic MENINGOCOCCAL (Group B) VACC INE SHARED DECISION-MAKING Aged Out No longer eligibl e based on patient's age to complete this topic MENINGOCOCCAL GROUPS A/C/Y/W VACCINE Aged Out No longer eligible b ased on patient's age to complete this topic Insurance MEDICARE MEDICARE Care Teams Supervising Architect Relationship Specialty Start Date End Date Anant Baker MD [facility] [place] [address] PCP - General Family Medicine 01/18/18
--- OUTSIDE RECORDS SUMMARY | 2025-03-02 17:01 | XMS_ITS | Patient Health Record ---
Author Organization [facility] Address [address] [facility] [address] [place] [address] Support Name Relationship Address Phone Jillian Holloway Guarantor Unknown [phone] Reason For Referral No Information Plan Of Treatment No Information
--- OUTSIDE RECORDS SUMMARY | 2025-03-02 17:01 | XMS_ITS | Clinical Summary ---
Author Organization [facility] Address [address] [place] [address] Care Team Providers Care Hand Therapist Name Role Phone Unavailable Primary Care Provider Unavailabl e Social History Tobacco Use Types Packs/Day Years Used Date Smoking Tobacco: Never Assessed Comments Unknown Sex and Gender Information Value Date Recorded Sex Assigned at Not on file Legal Sex Female 10:40 PM CDT Gender Identity Not on file Sexual Orientation Not on file Plan of Treatment Health Maintenance Due Date Last Done Comments DTAP/TDAP/TD VACCINES (1 - Tdap) 1973 COLORECTAL SCREENING 1999 Colorectal Cancer Screening 1999 FIT-DNA Q 3 years 1999 FIT/FOBT Q 1 year 1999 Flex Sig/CT Colonography Q 5 years 1999 PNEUMOCOCCAL VACCINE 50+ YEA RS (1 of 1 - PCV) 2004 ZOSTER VACCINE (1 of 2) 2004 OSTEOPOROSIS SCREENING 2019 BREAST CANCER SCREENING 03/30/2022 03/30/20 21, 03/30/2021, 01/14/2020, Additional history exists INFLUENZA VACCINE (#1) 2024 RSV VACCINE (60+ or ) (1 - 1-dose 75+ series) 2029
--- OUTSIDE RECORDS SUMMARY | 2025-03-02 17:01 | XMS_ITS ---
Author Organization [facility] Address [address] [facility] [address] [place] [address] Care Team Providers Care Shank Skinner Name Role Phone zzzzMigration, zzzzProvider Unavailable Unav ailable REASON FOR VISIT EMR-Cristian Encounters Encounter Location Date Provider Diagnosis [facility] [address] [facility] [address] [place] [address] 09/02/2023 zzzzProvider zzzzMigration Plan Of Treatment No Information Progress Notes * Jillian CARPENTER LDOB:[birth year] (69 yo F)Acc No.[id number]:09/02/2023 Patient: Jillian FU :1955 A ge:68 Y S ex:Female Address:[address] [place] [address] Subjective: * Chief Complaints: * E MR-Cristian * Medical History: * Surgical History: * Hospitalization/Major Diagno stic Procedure: * Medications: Objective: * Vitals: * Physical Examination: Assessment: Plan: * Treatment: * Procedure Codes: * true * Date: Generated for Printi ng/Faxing/eTransmitting on: 0 03/02/2025 05:00 PM CDT
--- OUTSIDE RECORDS SUMMARY | 2025-03-02 17:01 | XMS_ITS | Clinical Summary ---
Author Organization [facility] Address [address] [place] [address] Care Team Providers Care Hydraulic And Plumbing Installer Name Role Phone Joaquin Santos MD Primary Care Provider [phone] Allergies Active Allergy Reactions Criticality Noted Date [...] colitis 09/24/2015 Heartburn 09/24/2015 Weight loss 09/24/2015 Surgical History Surgery Date Site/Laterality Comments HYSTERECTOMY BREAST LUMPECTOMY ABDOMINOPLASTY Medical History Medical History Date Comments Lumbar radiculopathy Diverticulosis Dyslipidemia GERD (gastroesophageal reflux disease) Social History Tobacco Use Types Packs/Day Years [...] on file 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 Gender Identity Not on file Sexual Orientation Not on file Obstetrics History Last Filed Vital Signs Vital Sign Reading [...] 06/04/2023 11:20 AM CDT Plan of Treatment Health Maintenance Due Date Last Done Comments Depression Screening 1955 Hepatitis C Screening 1955 Osteoporosis Screening-Bone Density Scan 1954 DTaP/Tdap/Td Vaccine (1 - Tdap) 1965 Hepatitis B Screening 1972 Well Visit 65+ 2019 Pneumococcal vaccine 65+ (2 of 2 - PPSV23) 08/08/2020 08/08/2019 Breast Cancer Screening-Mammogram 03/30/2022 03/30/2021, 01/14/2020, 09/09/2013 Fall Risk Assessment 06/04/2024 06/04/2023 Influenza Vaccine (Season Ended) 2025 08/08/2019, 09/04/2018, 08/24/2017, Additional history exists Colon Cancer Screening-Colonoscopy 09/06/2025 09/06/2015 Colon Cancer Screening-CT Colonography Discontinued 09/06/2015 Colon Cancer Screening-DNA Stool Discontinued 09/06/20 Colon Cancer Screening-FIT Discontinued 09/06/2015 Colon Cancer Screening-Sigmoidoscopy Discontinued 09/06/2015 Zoster Vaccine Completed 10/14/2019, 07/15, 08/15/2014 Procedures Procedure Name Priority Date/Time Associated Diagnosis [...] compared to prior imaging studies performed at [facility] on 01/14/2020, at [facility] on 09/09/2013, and at [facility] on 04/30/2009. The breasts are heterogeneously dense, [...] compared to prior imaging studies performed at [facility] on 01/14/2020,at [facility] on 09/09/2013, and at [facility] on 04/30/2009. The breasts are heterogeneously dense, [...] Narrative 09/06/2015 Ordered by an unspecified provider. Historical Provider MD MCHUGH PROCEDURE ORDERABLES F inal Result from Last 3 Months or Most Recently Relevant to Health Maintenance Insurance MEDICARE [id number] [place] [id number] MEDICARE COMMERCIAL GENERIC MEDICARE [employer] Care Teams Hydraulic And Plumbing Installer Relationship Specialty Start Date End Date Joaquin Santos MD [address] [facility] [address] [place] [address] PCP - General Internal Medicine 06/04/23
== END 2025-03-02 15:00 | disposition home or self-care (01) ==
PROVIDERS: PCP Internal Medicine; Visit Provider Internal Medicine
DX: R09.89 Other specified symptoms and signs involving the circulatory and respiratory systems (principal); I65.23 Occlusion and stenosis of bilateral carotid arteries
CPT/HCPCS: 93880

== ENCOUNTER 2025-03-10 13:48 | Outpatient (CLI) | payer MEDICARE, SELFPAY ==
--- NOTE | ~2025-03-10 | CT_ITS ---
CT ANGIOGRAM NECK History: Abnormal results of cardiovascular function. Technique: Serial spiral axial images through the neck were obtained during arterial phase IV injecti on of 100 cc of Omnipaque 350. 3-D postprocessing and MIP images were then reconstructed on the [employer] workstation. Dose reduction technique was used on this scan by utilizing automated exposure control and iterative reconstruction technique. The dose-length product (DLP) was 411.43 mGy-cm. Findings: Bilateral vertebral arteries are patent. Bilateral common carotid, internal carotid, and e xternal carotid arteries are patent. There is calcified plaque at the proximal right internal carotid artery with high-grade, 80% stenosis. There is calcified plaque at the proximal left internal caroti d artery, with 50% stenosis. The proximal right internal carotid artery demonstrates 80% stenosis rel ative to the normal distal artery lumen diameter. The proximal left internal carotid artery demonstra alfonso 50% stenosis relative to the normal distal artery lumen diameter. Hypodense right thyroid nodule incidentally noted. Impression: High-grade stenosis of the proximal right internal carotid artery due to calcified plaque, 80% in deg ree. 50% stenosis of the proximal left internal carotid artery related to calcified plaque. Reviewed, dictated and finalized at location . Impression: High-grade stenosis of the proximal right internal carotid artery due to calcif ied plaque, 80% in degree. 50% stenosis of the proximal left internal carotid artery related to calcified plaque.
--- OUTSIDE RECORDS SUMMARY | 2025-03-10 15:05 | XMS_ITS | Referral Summary ---
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 on 09/09/2013, and at [facility] on 04/30/2009. The breasts are [...] compared to prior imaging studies performed at [facility] on 01/14/2020,at [facility] on 09/09/2013, and at [facility] on 04/30/2009. The breasts are [...] Health Maintenance Insurance MEDICARE COMMERCIAL GENERIC MEDICARE [employer] Care Teams Sap Consultant Relationship Specialty Start Date End Date Joaquin Santos MD [address] [facility] [address] [place], [place] [id number] PCP - General Internal Medicine 06/04/23
--- OUTSIDE RECORDS SUMMARY | 2025-03-10 15:05 | XMS_ITS | Clinical Summary ---
Author Organization [facility] Administrative Offices Address [address] [place] [address] Care Team Providers Care Wealth Management Advisor Name Role Phone Unavailable Primary Care Provider [...]
--- OUTSIDE RECORDS SUMMARY | 2025-03-10 15:05 | XMS_ITS | Clinical Summary ---
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 The breasts are heterogeneously dense, [...] compared to prior imaging studies performed at [facility] on 01/14/2020,at [facility] on 09/09/2013, and at [facility] on 04/30/2009. The breasts are heterogeneously dense, [...] to Health Maintenance Insurance MEDICARE [id number] [place] [id number] MEDICARE COMMERCIAL GENERIC MEDICARE [email or web address] Care Teams Geothermal Operations Manager Relationship Specialty Start Date End Date Joaquin Santos MD [address] [place] [address] PCP - General Internal Medicine 06/04/23
--- OUTSIDE RECORDS SUMMARY | 2025-03-10 15:05 | XMS_ITS | Encounter Summary ---
Author Organization [facility] Healthcare Address [address] [place] [address] Care Team Providers Care Industrial Security Analyst Name Role Phone Joaquin Santos MD Primary Care Provider [phone] Encounter Details Date Type Department Care Team (Late st Contact Info) Description 03/29/[address] [address] Elena Chavira, RT Social History Tobacco Use Types Packs/Day Years Used Date Smoking Tobacco: Never Assessed Comments Unknown Sex and Gender Information Value Date Recorded Sex Assigned at Not on file Legal Sex Female 3:52 AM RN CLINICAL DOCUMENTATION Gender Identity Not on file Sexual Orientation Not on file documented as of this encounter Plan of Treatment Not on file documented as of this encounter Visit Diagnoses Not on filedocumented in this encounter Care Teams Industrial Security Analyst Relationship Specialty Start Date End Date Joaquin Santos MD [address] [facility] [address] [facility] [address] [place] [address] PCP - General Internal Medicine 06/04/23 documented as of this encounter
--- OUTSIDE RECORDS SUMMARY | 2025-03-10 15:05 | XMS_ITS | Clinical Summary ---
Author Organization [facility] Address [address] [facility] [place] [address] Care Team Providers Care Police Inspector Name Role Phone Anant Baker MD Primary Care Provider [phone] Source Comments [facility],non-owned Affiliates and Associated Physician Practices is amultiple site organization consisting of ambulatory clinics and hospital sitesin [place], [place], [place] and [place]. This disclosure is being madepursuant to the Care Everywhere program and may not contain all information available regarding this patient. 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
== END 2025-03-10 13:49 | disposition home or self-care (01) ==
PROVIDERS: PCP Internal Medicine; Visit Provider Internal Medicine
DX: R94.39 Abnormal result of other cardiovascular function study (principal); E78.2 Mixed hyperlipidemia; R09.89 Other specified symptoms and signs involving the circulatory and respiratory systems; I65.23 Occlusion and stenosis of bilateral carotid arteries
CPT/HCPCS: 70498; Q9967

== ENCOUNTER 2025-09-28 12:17 | Outpatient (CLI) | payer MEDICARE, SELFPAY ==
--- NOTE | ~2025-09-28 | XR_ITS ---
XR cervical spine 4-5V Indication: M54.2 - Cervicalgia; PAIN 1 WK; NO INJURY Comparison: None Findings: Grade 1 anterolisthesis of C4 on C5, grade 1 retrolisthesis C5 on C6, no fracture. No subluxation with flexion and extension. Moderate loss of disc height throughout with moderate to severe loss of disc height at C5-6 and C6-7. Soft tissues unremarkable Impression: No acute abnormality. Reviewed, dictated and finalized at location P. GER INFORMATION Impression: No acute abnormality.
--- NOTE | ~2025-09-28 | XR_ITS ---
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 Findings: No acute fracture or malalignment. No significant degenerative changes. Soft tissues unremarkable. Impression: No acute fracture or malalignment. Reviewed, dictated and finalized at location P. CATTLE SPECIALIST Impression: No acute fracture or malalignment.
== END 2025-09-28 12:18 | disposition home or self-care (01) ==
PROVIDERS: PCP Internal Medicine; Visit Provider Internal Medicine
DX: M54.2 Cervicalgia (principal); M25.512 Pain in left shoulder
CPT/HCPCS: 72050; 73030